=== PATIENT | female | born 2000 | race Caucasian/White ===

== ENCOUNTER 2019-03-03 04:07 | Emergency (ER) | payer OTHER ==
[~2019-03-03] VITALS: Ht 157.5 cm; Wt 65.3 kg
[2019-03-03 04:13] VITALS: BP 123/85
[2019-03-03] MEDS ORDERED: IBUPROFEN 600 MG TABLET PO ONE ×2 (04:30→04:34)
--- NOTE | 2019-03-03 05:46 | NUR ---
Patient discharged to home in stable condition. Written and verbal after care instructions given. Patient verbalizes understanding of instruction.
== END 2019-03-03 05:47 | disposition home or self-care (01) ==
LOC: ER 04:12
DX: R06.02 Shortness of breath (principal); F17.200 Nicotine dependence, unspecified, uncomplicated; Z88.0 Allergy status to penicillin
CPT/HCPCS: 70360-TC

== ENCOUNTER 2020-03-15 13:37 | Emergency (ER) | payer OTHER ==
[~2020-03-15] VITALS: Ht 157.5 cm; Wt 70.3 kg
--- NOTE | 2020-03-15 14:30 | NUR ---
PT PRESENTED TO THE ER WITH A C/O VAGINAL BLEED THAT STARTED THIS MORNING. PT'S LMP WAS 02/25/2020. PT STATED THAT SHE IS NOT PREGANT AT THIS TIME, BUT IS TRYING. PT STATED THAT THE BLOOD IS BRIGHT RED WITH CLOTS. PT HAS NEVER HAD THIS HAPPEN BEFORE.
[2020-03-15 14:43] LABS: BASOPHILS % (AUTO) 0.5 % (0.0-2.0); EOSINOPHILS % (AUTO) 1.5 % (0.0-6.0); HEMATOCRIT 40 % (33-45); HEMOGLOBIN 13.2 g/dL (11.5-14.8); LYMPHOCYTES # (AUTO) 2.3 /CMM (0.8-4.8); LYMPHOCYTES % (AUTO) 25.2 % (20.0-44.0); MEAN CORPUSCULAR HGB CONC 33 g/dl (31.0-36.0); MEAN CORPUSCULAR VOLUME 85 fL (82-100); MONOCYTES # (AUTO) 0.7 /CMM (0.1-1.30); NEUTROPHILS % (AUTO) 64.8 % (43.0-81.0); PLATELET COUNT (AUTO) 282 /CMM (150-450); RED BLOOD CELL COUNT(AUTO) 4.71 MIL/uL (4.0-5.2); WHITE BLOOD COUNT (AUTO) 9.2 K/uL (4.3-11.0)
--- NOTE | 2020-03-15 14:50 | NUR ---
US [employer], IS AT THE BEDSIDE. Female plant puller accompanied female patient for TRANS VAG US.
--- NOTE | 2020-03-15 14:54 | NUR ---
PT AMBULATED TO THE BATHROOM TO GIVE A URINE SAMPLE.
[2020-03-15 15:41] LABS: APPEARANCE,URINE Cloudy (CLEAR); BILIRUBIN,URINE Negative (NEGATIVE); BLOOD, URINE Large Ery/uL (NEGATIVE); COLOR,URINE Red (YELLOW); KETONES,URINE Negative (NEGATIVE); LEUKOCYTE ESTERASE ,URINE Negative (NEGATIVE); NITRITE, URINE Negative (NEGATIVE); PROTEIN,URINE 30 mg/dl (NEGATIVE); UGLUCOSE Negative (NEGATIVE); UROBILINOGEN,URINE 0.2 EU/dL (0.2)
--- NOTE | 2020-03-15 16:01 | NUR ---
Patient discharged to home in stable condition. Written and verbal after care instructions given. Patient verbalizes understanding of instruction.
[2020-03-15 16:02] VITALS: BP 109/66
[2020-03-15 16:25] LABS: RBC,URINE 81-100 /HPF (0-2)
[2020-03-15 16:26] LABS: BACTERIA,URINE Few /HPF (None Seen); SQUAMOUS EPITHELIAL CELL,UR Moderate /HPF (None Seen); WBC,URINE 0-2 /HPF (0-3)
== END 2020-03-15 16:02 | disposition home or self-care (01) ==
LOC: ER 13:37
DX: N93.8 Other specified abnormal uterine and vaginal bleeding (principal); F17.200 Nicotine dependence, unspecified, uncomplicated; Z88.0 Allergy status to penicillin
CPT/HCPCS: 36415; 76856-TC; 81000-TC; 84702-TC; 84703-TC; 85025-TC